=== PATIENT | male | born 1975 | race African-American/Black ===

== ENCOUNTER 2018-02-14 19:37 | Emergency (ER) | payer OTHER ==
[~2018-02-14 19:37] MED LIST: AMBIEN; B12 INJ; HYDR-4683 PO; PROMCRY XX
[2018-02-14 19:52] VITALS: BP 86/49
[2018-02-14 20:38] LABS: Basophils # (auto) 0.1 uL; Basophils % (auto) 0.5 % (0.0-2.0); Eosinophils # (auto) 0.2 uL; Eosinophils % (auto) 1.8 % (0.0-7.0); Hematocrit 36.8 % (41.0-53.0); Hemoglobin 12.1 g/dL (13.5-17.5); Lymphocytes # (auto) 2.2 uL; Lymphocytes % (auto) 21.2 % (10.0-50.0); Mean Corpuscular Hemoglobin 28.5 pg (28.0-32.0); Mean Corpuscular Hgb Conc. 32.9 g/dL (32.0-36.0); Mean Corpuscular Volume 86.5 fL (80.0-100.0); Monocytes % (auto) 10.3 % (0.0-12.0); Neutrophils # (auto) 6.7 uL; Neutrophils % (auto) 66.2 % (37.0-80.0); Platelet Count (auto) 233 10^3/uL (140-450); Red Blood Cells 4.25 10^6/uL (4.5-5.90); Red Cell Distribution Width 15.7 % (11.8-14.3); White Blood Cell 10.2 10^3/uL (4.4-10.8)
[2018-02-14 20:55] LABS: Albumin 3.4 g/dL (3.4-5.0); Calcium 8.6 mg/dL (8.5-10.1); Potassium 3.4 mmol/L (3.5-5.1)
[2018-02-14 20:59] LABS: Bilirubin, Total 0.2 mg/dL (0.2-1.0); Total Protein 8.6 g/dL (6.4-8.2)
== END 2018-02-14 23:10 | disposition left against medical advice (07) ==
LOC: ER 19:41
DX: R52 Pain, unspecified (principal); Z53.21 Procedure and treatment not carried out due to patient leaving prior to being seen by health care provider
CPT/HCPCS: 36415; 70450; 80053; 85025

== ENCOUNTER 2018-02-16 14:43 | Emergency (ER) | payer OTHER ==
[~2018-02-16] VITALS: Ht 190.5 cm; Wt 59.0 kg
[2018-02-16 17:44] VITALS: BP 136/91
== END 2018-02-16 17:14 | disposition home or self-care (01) ==
LOC: ER 14:43 → EDBD 14:43 → ER 17:14
DX: K59.01 Slow transit constipation (principal); N39.0 Urinary tract infection, site not specified; G82.50 Quadriplegia, unspecified; F17.210 Nicotine dependence, cigarettes, uncomplicated; F12.90 Cannabis use, unspecified, uncomplicated; Z79.899 Other long term (current) drug therapy; Z89.612 Acquired absence of left leg above knee
CPT/HCPCS: 74018; 81002